=== PATIENT | female | born 1930 | race Caucasian/White ===

== ENCOUNTER 2017-04-06 17:40 | Observation (INO) | payer OTHER, MEDICARE ==
[~2017-04-06] VITALS: Ht 152.4 cm; Wt 66.2 kg
[~2017-04-06 17:40] MED LIST: ALLOPURINOL100 M1 PO; AMLODIPINE BESY10 M1 PO; ASPIRIN EC81 M1 PO; ATORVASTATIN CA20 M1 PO; CALTRATE 600 +1 EACH PO; CLONIDINE HCL0.1 MG PO; CLOPIDOGREL75 M1 PO; DICLOFENAC POTA50 M1 PO; I-CAPS WITH LU1 EACH PO; INDOMETHACIN25 M1 PO; LEVAQUIN500 M1 PO; LOSARTAN-HCTZ1 EAC2 PO; METOPROLOL SUC100 M2 PO; NITROGLYCERIN1 EACH TOP; OMEPRAZOLE40 M1 PO; PREDNISONE10 M2 PO; TESSALON PERLE100 M1 PO
--- NOTE | 2017-04-06 17:46 | NUR ---
PT BIBA FROM HOME C/O CHEST PAIN FOR HALF HOUR PRIOR TO CALLING EMS. PER REPORT, PT HAD PREVIOUSLY HAD SAME PAIN AND XRAY TO RULE OUT SKELETAL CAUSE. CHRONICALLY HYPERTENSIVE. OTHER VS WNL. O2 SAT 98% ON RA. PT WITH NO APPARENT DISTRESS, GOOD COLOR, NO INCREASED WOB.
--- NOTE | 2017-04-06 18:00 | NUR ---
RECIEVED TO ROOM 9. ASSISTED IN GETTING UNDRESSED.
--- NOTE | 2017-04-06 18:15 | NUR ---
EKG COPLETED. MST JENNIFER IN ROOM TO DRAW LABS. ON MONITOR IN [place].
--- NOTE | 2017-04-06 18:19 | NUR ---
LABS DRAWN AND SENT BY THIS [facility]. MARILYN,RIGO,LAV.
[2017-04-06 18:31] LABS: ABSOLUTE BASOPHIL COUNT 0 /CUMM (0.0-0.2); ABSOLUTE EOSINOPHIL COUNT 0.1 /CUMM (0.0-0.7); ABSOLUTE GRANULOCYTE CT 3.9 /CUMM (1.4-6.5); ABSOLUTE LYMPH COUNT 1.7 /CUMM (1.2-3.4); ABSOLUTE MONOCYTE COUNT 0.5 /CUMM (0.10-0.60); BASOPHIL % 0.8 % (0.0-2.0); EOSINOPHIL % 2.4 % (0-5); GRANULOCYTE % 61.9 % (42.2-75.2); MEAN CORPUSCULAR HGB 20.7 PG (27.0-31.0); MEAN CORPUSCULAR VOLUME 66.6 FL (81.0-99.0); MEAN PLATELET VOLUME 10.6 FL (7.4-10.4); PLATELET COUNT 178 /CUMM (130-400); RBC DISTRIBUTION WIDTH 17.6 % (11.5-14.5); WHITE BLOOD CELL COUNT 6.3 /CUMM (4.8-10.8)
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
--- NOTE | 2017-04-06 19:01 | RADIOLOGY REPORT ---
EXAMINATION: XR PORTABLE CHEST CLINICAL INFORMATION: Chest pain, pneumonia. COMPARISON: 05/11/2016. TECHNIQUE: Portable frontal view of the chest was obtained. FINDINGS: The cardiomediastinal silhouette is stable appearing. Lung volumes are diminished. The lungs and pleural spaces appear clear without evidence of congestion, consolidation, or significant appearing effusion or atelectasis. There is no evidence of pneumothorax or pulmonary edema. Included osseous structures appear largely unremarkable. IMPRESSION: No acute intrathoracic process.
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
[2017-04-06] MEDS ORDERED: LANSOPRAZOLE30 M2 PO (19:21)
[2017-04-06] MEDS ORDERED: AMLODIPINE BESYL5 M1 PO (19:22)
[2017-04-06] MEDS ORDERED: COLCHICINE0.6 M2 PO (19:23)
--- NOTE | 2017-04-06 19:34 | NUR ---
SEEN BY PADMINI CHOUDHURY. CONTINUES TO HAVE RIGHT CHEST PAIN
--- NOTE | 2017-04-06 19:50 | NUR ---
SANDHYA PA IN TO DISCUSS PLAN FOR IVF HYDRATION, CTA SCAN DUE TO ELEVATED D DIMER. PT INFORMED SHE NEEDS A A/C IV FOR CTA. PT TO GET UP AND PROVIDE URINE SPECIMEN PRIOR TO GETTING NEW IV STARTED
--- NOTE | 2017-04-06 20:15 | NUR ---
URINE TRIO SENT TO LAB. IV PLACED IN AC FOR CTA SCAN. IVF BOLUS STARTED
--- NOTE | 2017-04-06 20:46 | NUR ---
PT IN CT SCAN
--- NOTE | 2017-04-06 21:22 | NUR ---
PT UP TO RESTROOM TO VOID
--- NOTE | 2017-04-06 21:25 | CT SCAN REPORT ---
EXAMINATION: 1. CT ANGIOGRAM CHEST, for pulmonary embolism 2. CTA neck with IV contrast CLINICAL INFORMATION: Chest pain radiating to the neck. Shortness of breath. COMPARISON: Chest x-ray 04/06/2017 TECHNIQUE: A noncontrast localizer was performed, followed by the administration of 95 mL Optiray [address] of the neck and chest was then performed. Coronal and sagittal reformatted and 3-D technique MIP images of the chest were completed at the CT scanner and reviewed on the PACS workstation. DLP: 1017.51 mGy-cm. FINDINGS: 1. CT PE exam chest: VASCULAR: The main pulmonary artery, secondary and tertiary branches of the pulmonary artery are normally opacified with no evidence of pulmonary embolism. Atherosclerotic vascular wall calcifications of aorta and origin of great vessels. No aneurysm or dissection of the aorta. MEDIASTINUM: No mediastinal mass. No significant lymphadenopathy. There is no pericardial effusion. LUNGS: No acute infiltrate. Central bronchial airways are open. Linear parenchymal scarring at lung bases bilateral. FLUID: There is no pericardial effusion. There is no pleural effusion. AXILLA: No significant lymphadenopathy. UPPER ABDOMEN: Adrenal glands normal. Visualized portions of liver and spleen unremarkable. SKELETAL: Multilevel degenerative change of the spine with bridging osteophytes and facet joint arthrosis. 2. CT of neck with contrast: VASCULAR: Normal enhancement of the vasculature of the neck. No aortic dissection. No dissection of the carotid vessels. OTHER: No abnormal enhancing lesion. No bulky lymphadenopathy. Fat planes of the neck are normal with no inflammatory change. The nasopharynx or oropharynx and hypopharynx are unremarkable. No prevertebral soft tissue swelling. Right and left lobes of thyroid gland shows small hypodense nonenhancing nodules but no enlargement of the thyroid. The submandibular glands and the parotid glands are normal. Orbits unremarkable. Paranasal sinuses and mastoid air cells are normally aerated. The visualized portions of the intracranial structures are unremarkable. There is degenerative spondylosis of the spine with disc height narrowing and endplate spurring and facet joint arthrosis at multiple levels. IMPRESSION: 1. CT OF CHEST: No acute change of the chest. No evidence of aortic or carotid dissection. No evidence of pulmonary embolism. 2. CT OF NECK: No inflammation or mass. No abnormal enhancing lesion.
--- NOTE | 2017-04-06 22:12 | NUR ---
PT GIVEN BOX LUNCH TO EAT
--- NOTE | 2017-04-06 22:45 | NUR ---
SECOND TROP AND EKG DONE AT THIS TIME.
--- NOTE | 2017-04-06 23:11 | NUR ---
MEDICATED WITH EVENING DOSE OF CLONIDINE DUE TO ELEVATED BLOOD PRESSURE. NTG PATCH REMOVED FROM PT--PER PT REQUEST-FOR NITRATE FREE PERIOD AT NIGHT
--- NOTE | 2017-04-06 23:48 | NUR ---
Informed waiting has been performed.
--- NOTE | 2017-04-07 00:07 | NUR ---
PT AWARE THAT WE ARE AWAITING BED ASSIGNMENT.
--- NOTE | 2017-04-07 00:14 | NUR ---
Emergency Dept UC Admit Note: To be admitted to [facility] by DR. ALMONTE with CHEST PAIN R/O ACS as the diagnosis, to TELE 1NO [id number] A 23HR OBS location. Nursing Pupil Personnel Worker and admitting notified 04/07/17 at [id number]
--- NOTE | 2017-04-07 00:25 | NUR ---
REPORT GIVEN TO RAGHAV ON TELEMETRY. BED IS READY.
--- NOTE | 2017-04-07 01:07 | History & Physical ---
MARISABEL NOVA 04/07/17 0107: General Information and HPI MD Statement: I have seen and personally examined ALLA BLOCK and documented this H&P. The patient is a 86 year old F who presented with a patient stated chief complaint of chest discomfort Source of Information: patient, old records Exam Limitations: no limitations History of Present Illness: Ms Block is an 86-year-old woman who was known to be in her usual state of health until a few months ago. She has a past medical history of hypertension, angina (stress test-normal 1 yr ago), gout, hyperlipidemia. She came to [facility] with a chief concern of chest pressure 1 day. As per the patient, she has chest pressure, on and off for a few months, episodes last 10-15' , with no radiation, severity 4-5/10, with resolution upon rest. No palpitations, shortness of breath, loss of consciousness, abdominal discomfort was noted. This a.m., the patient had similar complaints, chest pressure, located in the center of the chest, 5/10, radiation to both sides of the neck and head, lasted for an hour. Reported to have elevated blood pressure , when the EMS arrived. Did not have any dysuria, neurological weakness, fever, cough, shortness of breath. Independent at baseline, lives with family, and has been following with her primary care physician on a regular basis. Reports compliance with her medications. Nonsmoker, nonalcoholic. Allergies/Medications Allergies: Coded Allergies: No Known Allergies (01/13/16) Observation Initial Note - I have personally examined ALLA BLOCK on 04/07/17 at 0309. The disposition of ALLA BLOCK is uncertain at this time and before a determination can be made, she requires a period of observation for the following reasons #1 rule out ACS #2 serial electrocardiograms and echocardiograms. Past History Travel History Traveled to [place] past 21 day No Medical History Neurological: NONE EENT: NONE Cardiovascular: angina, hypertension, hyperlipidemia Respiratory: pneumonia Gastrointestinal: GERD Hepatic: NONE Renal: GOUT Musculoskeletal: NONE Psychiatric: NONE Endocrine: NONE Blood Disorders: NONE Cancer(s): NONE SU[employer]/Reproductive: NONE Surgical History Surgical History: non-contributory Past Family/Social History Family History Relations & Conditions if any Relation not specified for: *No pertinent family history Functional Ability ADLs Independent: dressing, eating, toileting, bathing. Ambulation: independent IADLs Independent: housework, food prep, telephone. Unknown: shopping, finances, transportation, medication admin. Review of Systems Review of Systems Constitutional: Reports: see HPI. Denies: chills, fever. EENTM: Denies: blurred vision. Cardiovascular: Reports: chest pain. Denies: orthopena, palpitations. Respiratory: Denies: cough, short of breath. GI: Denies: constipation, melena, nausea, vomiting. Genitourinary: Denies: discharge. Musculoskeletal: Denies: back pain. Skin: Denies: change in skin color. Neurological/Psychological: Denies: anxiety, headache. Hematologic/Endocrine: Denies: bruising. Exam & Diagnostic Data Last 24 Hrs of Vital Signs/I&O Vital Signs Date Time Temp Pulse Resp B/P B/P Pulse O2 O2 Flow FiO2 Mean Ox Delivery Rate 04/07 0213 97.6 49 20 150/74 97 Room Air 04/07 0007 96.8 57 18 164/72 97 Room Air 04/06 2310 96.5 59 18 180/76 97 Room Air 04/06 2257 52 188/70 04/06 2057 96.8 52 18 188/70 98 Room Air 04/06 1855 Room Air 04/06 1742 97.8 55 18 188/79 97 Room Air Intake & Output 04/07 0800 04/07 0000 04/06 1600 Intake Total 1000 Output Total Balance 1000 Intake, IV 1000 Patient 146 lb Weight Physical Exam General Appearance Alert, Oriented X3, Cooperative, No Acute Distress Skin No Rashes, No Breakdown Skin Temp/Moisture Exam: Warm/Dry Sepsis Skin Exam (color): Normal for Ethnicity HEENT Atraumatic, PERRLA, EOMI Neck Supple, No JVD, No thryomegaly, +2 Carotid Pulse wo Bruit Lymphatic Cervical nl Cardiovascular Regular Rate, Normal S1, Normal S2, No Murmurs Lungs Clear to Auscultation, Normal Air Movement Abdomen Normal Bowel Sounds, Soft, No Tenderness, No Hepatospenomegaly Neurological Normal Speech, Strength at 5/5 X4 Ext, Normal Tone, Sensation Intact, Cranial Nerves 3-12 NL Extremities No Clubbing, No Cyanosis, Normal Pulses, No Tenderness/Swelling, swelling on left pcp joint on third finger, from gout Vascular Pulses Symmetrical Sepsis Peripheral Pulse Location: Dorsalis Pedis Body Front and Back (Adult) 1) swelling of finger joints Diagnostic Data EKG Results Normal sinus rhythm, normal axis, no ST-T wave changes. CXR Results No acute intrathoracic process. Other Results 1. CT OF CHEST: No acute change of the chest. No evidence of aortic or carotid dissection. No evidence of pulmonary embolism. 2. CT OF NECK: No inflammation or mass. No abnormal enhancing lesion. Assessment/Plan Assessment: She is rollerblading with a past history of angina, hypertension is being evaluated for worsening chest pressure 1 day. At the time of admission, vitals-temperature 97.8, pulse rate 55, respiration 18 , blood pressure 188/79 (improved to 164/72), 98% on room air. Lab findings indicated no leukocytosis, H&H low-9.9 (baseline unknown), normal platelets, normal electrolytes, abnormal renal function (serum creatinine 1.5), cardiac enzymes-negative, hepatic panel-within normal limits. ProBNP 340. Radiological findings-CT chest was unremarkable for any dissection. No pulmonary embolism. Differential diagnosis: #1 rule out ACS #2 aortic dissection #3 musculoskeletal #4 pneumonia Below is the problem list and plan: #1 chest pressure-could be transient vasospasm of coronary arteries, and/or age related. Serial electrocardiograms and echocardiograms to be done. Telemetry monitoring for the next [address] in observation[address] Review the results from stress test, and ascertain if any further testing is required. Vitals. CTA negative for aortic dissection. Musculoskeletal cause is in the differential. Patient on aspirin and Plavix at this time as part of her home medications-which needs to be addressed, the reason for dual antiplatelet therapy in this case. #2 hypertension-per definition, she has resistant hypertension. Continue antihypertensives at this time, but introduce them slowly in order to avoid sudden drop in blood pressure. #3 DVT prophylaxis-pharmacological. As Ranked By This Provider Problem List: 1. Chest pain Qualifiers Chest pain type: unspecified Qualified Code: R07.9 - Chest pain, unspecified 2. Gout attack Core Measures/Miscellaneous Acute Coronary Syndrome ACS Diagnosis: No Cerebrovascular Accident CVA/TIA Diagnosis: No Congestive Heart Failure CHF Diagnosis: No VTE (View Protocol) VTE Risk Factors: Acute medical illness No [facility] VTE prophylaxis d/t: No contraindications No VTE Pharm Prophylaxis d/t: No contraindications VTE Diagnosis: No VTE Type: NONE VTE Confirmed by (Test): NONE Sepsis (View Protocol) Severe Sepsis Present: No Septic Shock Septic Shock Present: No Miscellaneous Documentation Attending Case Discussed With: SUZY MUNOZ,YOMAIRA Butterfield Primary Care Physician: ZEN TADEO MD, I. Patient sees these Specialists unkninw Level of Patient Care: Telemetry DEEPALI SINGH 04/07/17 0203: Resident Review Statement Resident Statement: discussed with sports internship, agreed with sports internship, discussed with family Other Findings: Patient is a healthy 86 year old female with PMH of HTN, hyperglycemia, possibly underlying renal disease (follows chief mechanical engineer but unsure of the problem), gout, arthritis, came with a chief complain of tightness around her chest. Patient states that the chest tightness has been going on since a couple of weeks, it spreads to her neck, head and back. Patient states that it is 7/10 in intensity. She had no prior workup done but visited her PCP on wednesday 04/04 and had a CXR done. Patient denies any light headedness, shortness of breath, palpitations, abdominal discomfort, burning micturation etc. She states that she lives with her brother in law at home after the of her sister and . Patient has never followed a community health worker, and reports of a normal stress test from last year. She follows PCP in [facility], Dr. Tadeo. Labs and Vitals as above. Imaging results 1. CT OF CHEST: No acute change of the chest. No evidence of aortic or carotid dissection. No evidence of pulmonary embolism. 2. CT OF NECK: No inflammation or mass. No abnormal enhancing lesion. CXR No acute intrathoracic process. Plan Will admit to telemetry floor, and monitor closely Patients pain could be due to anxiety, however will rule her out for ACS Two sets of troponins have been negative. Will discuss the case with Dr. Fam in am. Will obtain echocardiogram to evaluate Creatinine 1.5, could be her baseline value, will obtain old records to verify. Will avoid IV fluids for now as patient has hx of b/l lower extremety swelling. Will resume her home meds for hypertension, patient was given Clonidine in ER. She takes 4 antihypertensive medications, Amlodipine, Clonidine, HCTZ/Losartan. Patient is on Aspirin and Plavex, she is unsure why she is on plavix, please obtain her records from PCP office to confirm. Will hold allpurinol, and losartan/HCTZ and monitor creatinine. Will obtain Lipid panel and HbA1c DVT ppx SC heprin Patient is full code. SUZY MUNOZ,YOMAIRA Butterfield 04/07/17 1513: General Information and HPI Allergies/Medications Home Med list Allopurinol 100 MG TABLET 2 TAB PO DAILY GOUT (Reported) Amlodipine Besylate 5 MG TABLET 1 TAB PO DAILY BP (Reported) Antiox#10/Om3/Dha/Epa/Lut/Zeax (I-Caps With Lutein-[place] 3 Sfg) 1 EACH CAPSULE 1 CAP PO DAILY SUPPLEMENT (Reported) Aspirin (Ecotrin*) 81 MG TABLET.DR 1 TAB PO DAILY HEART/BLOOD (Reported) Atorvastatin Calcium 20 MG TABLET 1 TAB PO DAILY CHOLESTEROL (Reported) Calcium Carbonate/Vitamin D3 (Caltrate 600 + D Tablet) 1 EACH TABLET 1 TAB PO DAILY SUPPLEMENT (Reported) Clonidine HCl 0.1 MG TABLET 1 TAB PO BID BP (Reported) Clopidogrel Bisulfate (Clopidogrel) 75 MG TABLET 1 TAB PO DAILY BLOOD THINNER (Reported) Lansoprazole 30 MG CAPSULE.DR 1 CAP PO DAILY GI (Reported) Losartan/Hydrochlorothiazide (Losartan-Hctz 100-25 MG Tab) 1 EACH TABLET 0.5 TAB PO DAILY HTN Metoprolol Succinate 100 MG TAB.ER.24H 1 TAB PO DAILY BP (Reported) Nitroglycerin (Nitroglycerin Patch) 1 EACH PATCH.TD24 1 PATCH TOP DAILY ANGINA (Reported) Attending MD Review Statement Attending Statement Attending MD Statement: examined this patient, discuss w/resident/PA/JANITORIAL ASSISTANT, agreed w/resident/PA/JANITORIAL ASSISTANT, discussed with family, reviewed EMR data (avail), discussed with nursing, discussed with case mgmt, reviewed images, amended to note Attending Assessment/Plan: Mrs. Alla Block is an 86-year-old female with a history of obesity, gout, arthritis (? gouty), hypertension, dyslipidemia, diabetes mellitus, chronic kidney disease, anemia, and chest pain syndrome with "negative"stress test approximately one year ago who presented from home after experiencing an episode of moderate, chest "tightness" while making dinner last evening that lasted approximately 20 minutes before spontaneously subsiding. She denies any associated symptoms with the discomfort, but did feel as though it radiated into her head. Her [id number] contacted 911 and it was recommended that she take 4 aspirin (81 mg) which he had her take. She was told in the past that similar episodes were the result of "anxiety". She denies any history of coronary, valvular, dysrhythmic/conduction disease or cardiomyopathy. On physical examination she is well-developed, overweight elderly female in no acute distress. Vital signs: See above. HEENT: Normocephalic, atraumatic, EOMI, slightly dry mucous membranes. Neck: No JVD, no bruits. Lungs: Clear to auscultation bilaterally. Heart: S1, S2 with grade 1/6 systolic murmur. No gallop or rub appreciated. PMI fifth ICS at MCL. Abdomen: Soft, nontender, positive bowel sounds. Extremities: No edema. Studies: ECG (04/07/2017): sinus bradycardia, low frontal lead voltage, and prominent anterior forces. No significant change when compared to previous tracing performed on 04/06/2017. CT chest/neck (04/06/2017): 1. CT OF CHEST: No acute change of the chest. No evidence of aortic or carotid dissection. No evidence of pulmonary embolism. 2. CT OF NECK: No inflammation or mass. No abnormal enhancing lesion. Troponins: < 0.013. Impression: Elderly female with a risk equivalent and multiple risk factors for coronary artery disease who presented following an episode of chest discomfort, similar to other past, that resolved on its own after approximately 20 minutes without any electrocardiographic changes and negative cardiac enzymes. She is also very anxious to discharge so that she can follow-up with her primary care physician in [place]. Discussed the pros and cons of discharging her before stress testing can be performed and she is aware of the potential risk of this course of action and accepts it.
[2017-04-07 02:13] VITALS: BP 150/74
[2017-04-07 04:52] LABS: ABSOLUTE BASOPHIL COUNT 0.1 /CUMM (0.0-0.2); ABSOLUTE EOSINOPHIL COUNT 0.1 /CUMM (0.0-0.7); ABSOLUTE GRANULOCYTE CT 3.7 /CUMM (1.4-6.5); ABSOLUTE LYMPH COUNT 1.9 /CUMM (1.2-3.4); ABSOLUTE MONOCYTE COUNT 0.4 /CUMM (0.10-0.60); BASOPHIL % 0.9 % (0.0-2.0); EOSINOPHIL % 1.7 % (0-5); GRANULOCYTE % 59.7 % (42.2-75.2); HEMATOCRIT 31.9 % (37-47); MEAN CORPUSCULAR HGB 20.4 PG (27.0-31.0); MEAN CORPUSCULAR HGB CONC 30.6 G/DL (33.0-37.0); MEAN CORPUSCULAR VOLUME 66.7 FL (81.0-99.0); MEAN PLATELET VOLUME 9.9 FL (7.4-10.4); PLATELET COUNT 179 /CUMM (130-400); RBC DISTRIBUTION WIDTH 17.7 % (11.5-14.5); RED BLOOD CELL CT 4.78 /CUMM (4.20-5.40); WHITE BLOOD CELL COUNT 6.2 /CUMM (4.8-10.8)
[2017-04-07 07:17] VITALS: BP 164/88
--- NOTE | 2017-04-07 11:31 | Patient Discharge Instructions ---
Discharge Instructions General Discharge Information You were seen/treated for: chest pain/ r/o ACS Hyperlipidemia hypertension Special Instructions: -Please schedule a follow up with your PCP in one week for stress test . -Please take the medications as directed . -Dose of losartan/HCTZ has been decreased to 50/12.5 mg dailly. -Return to ER if symptoms get worse after the discharge. repeat thyroid function test in one week by your primary care physician. Diet Recommended Diet: Heart Healthy Activity Activity Self Limited: Yes Acute Coronary Syndrome Inclusion Criteria At DC or during hospital stay patient has or had the following: ACS DIAGNOSIS No Discharge Core Measures Meds if any: Prescribed or Continued at Discharge Meds if any: NOT Prescribed or Continued at Discharge Congestive Heart Failure Inclusion Criteria At DC or during hospital stay patient has or had the following: CHF DIAGNOSIS No Discharge Core Measures Meds if any: Prescribed or Continued at Discharge Meds if any: NOT Prescribed or Continued at Discharge Cerebrovascular accident Inclusion Criteria At DC or during hospital stay patient has or had the following: CVA/TIA Diagnosis No Discharge Core Measures Meds if any: Prescribed or Continued at Discharge Meds if any: NOT Prescribed or Continued at Discharge Venous thromboembolism Inclusion Criteria VTE Diagnosis No VTE Type NONE VTE Confirmed by (Test) NONE Discharge Core Measures - Per Current guidelines, there needs to be overlap - treatment for the first 5 days of Warfarin therapy. - If discharged on Warfarin prior to 5 days of - overlap therapy, the patient will need to be - assessed for post discharge needs including - *Post discharge parental anticoagulation - *Warfarin and/or parental anticoagulation education - *Follow up date to check INR post discharge At least 5 days overlap therapy as Inpatient No Meds if any: Prescribed or Continued at Discharge Note: Overlap Therapy is Warfarin and Anticoagulant Meds if any: NOT Prescribed or Continued at Discharge
--- NOTE | 2017-04-07 12:46 | ECHOCARDIOGRAM REPORT ---
KALEB MILLER Age: 86 : 1930 Gender: F Exam Date: 04/07/2017 10:32 Exam Location: 1 [address] Ht (in): 60 Wt (lb): 146 BSA: 1.70 BP: 164 / 88 Ordering Physician: DEEPALI SINGH MD Referring Physician: DEEPALI SINGH MD Technologist: Grabiel Rhodes [facility] Room Number: 175-1 Indications: Chest Pain Rhythm: Sinus Technical Quality: Fair FINDINGS Left Ventricle Normal global left ventricular size, wall thickness, systolic function with no obvious regional wall motion abnormalities. Left ventricular ejection fraction is estimated at >65 %. Normal left ventricular diastolic filling pattern for age. Right Ventricle The right ventricle is normal in size and function. Right Atrium The right atrium is normal in size. Left Atrium The left atrium is upper normal liimits in size. The interatrial septum is intact. Mitral Valve The mitral valve is normal in structure and function. There is trace mitral regurgitation. Aortic Valve Focal thickening of the aortic valve cusps. No aortic stenosis. Trace aortic regurgitation. Tricuspid Valve The tricuspid valve is normal in structure and function. There is mild tricuspid regurgitation. Right ventricular systolic pressure estimated to be elevated at 60-65 mmHg. Moderate to severe pulmonary hypertension. Pulmonic Valve Structurally normal pulmonic valve. There is no pulmonic regurgitation. Pericardium Normal pericardium without effusion. No pleural effusion. Great Vessels Normal aortic root dimension. The aortic arch and great vessels are well seen and are normal. CONCLUSIONS Normal global left ventricular size, wall thickness, systolic function with no obvious regional wall motion abnormalities. The left atrium is upper normal limits in size. The mitral valve is normal in structure and function. Focal thickening of the aortic valve cusps. No aortic stenosis. Trace aortic regurgitation. There is mild tricuspid regurgitation. Right ventricular systolic pressure estimated to be elevated at 60- 65 mmHg. Moderate to severe pulmonary hypertension. Jeffery Wen M.D. (Electronically Signed) Final Date: 07 April 2017 12:45 MEASUREMENTS (Male / Female) Normal Values 2D ECHO LV Diastolic Diameter PLAX 4.5 cm 4.2 - 5.9 / 3.9 - 5.3 cm LV Systolic Diameter PLAX 2.8 cm 2.1 - 4.0 cm LV Fractional Shortening PLAX 37.8 % 25 - 46 % LV Ejection Fraction 2D Teich 68.0 % IVS Diastolic Thickness 0.9 cm LVPW Diastolic Thickness 1.0 cm LV Relative Wall Thickness 0.4 RV Internal Dim ED PLAX 3.3 cm 1.9 - 3.8 cm LVOT Diameter 1.7 cm Aortic Root Diameter 2.0 cm LA Systolic Diameter LX 3.7 cm 3.0 - 4.0 / 2.7 - 3.8 cm LA Volume 39.0 cm 18 - 58 / 22 - 52 cm Ascending Aorta Diameter 2.8 cm DOPPLER AV Peak Velocity 176.0 cm/s AV Peak Gradient 12.4 mmHg AV Mean Velocity 115.0 cm/s AV Mean Gradient 6.0 mmHg AV Velocity Time Integral 45.0 cm LVOT Peak Velocity 87.2 cm/s LVOT Peak Gradient 3.0 mmHg LVOT Mean Velocity 68.5 cm/s LVOT Mean Gradient 2.0 mmHg LVOT Velocity Time Integral 27.2 cm LVOT Stroke Volume 61.7 cm AV Area Cont Eq vti 1.4 cm AV Area Cont Eq pk 1.1 cm MV Peak Velocity 105.0 cm/s MV Peak Gradient 4.4 mmHg MV Mean Velocity 55.3 cm/s MV Mean Gradient 1.0 mmHg Mitral E Point Velocity 97.2 cm/s Mitral A Point Velocity 67.1 cm/s Mitral E to A Ratio 1.4 MV PHT Velocity 109.0 cm/s MV Deceleration Hendry 717.0 cm/s MV Pressure Half Time 45.6 ms MV Area PHT 4.8 cm MV Deceleration Time 173.0 ms TR Peak Velocity 373.0 cm/s TR Peak Gradient 55.7 mmHg Right Atrial Pressure 5.0 mmHg Pulmonary Artery Systolic Pressu 60.7 mmHg Right Ventricular Systolic Press 60.7 mmHg PV Peak Velocity 91.0 cm/s PV Peak Gradient 3.3 mmHg PV Mean Velocity 72.8 cm/s PV Mean Gradient 2.0 mmHg PV Velocity Time Integral 28.1 cm LV E' Lateral Velocity 10.2 cm/s Mitral E to LV E' Lateral Ratio 9.5 LV E' Septal Velocity 6.7 cm/s Mitral E to LV E' Septal Ratio 14.4
[2017-04-07 13:31] VITALS: BP 140/60
[2017-04-07 14:35] VITALS: BP 150/62
[2017-04-07] MEDS ORDERED: LOSARTAN-HCTZ1 EAC2 PO (15:18)
--- NOTE | 2017-04-07 16:12 | Event Note ---
Event Note Event Note: Patient was very anxious to be discharged, discussed the pros and cons of discharging her before stress testing could be performed, she is aware of the potential risk of sigining AMA but still is accepting the risk. She wants to follow up with her PCP in [place].
== END 2017-04-07 16:55 | disposition left against medical advice (07) ==
LOC: ERH 17:40 → ERHI 23:19 → 1NO 23:19 → ENRESERV 04-07 00:10 → 1NO 04-07 00:33 → ENPENDDIS 04-07 16:16 → 1NO 04-07 16:55
PROVIDERS: Internal Medicine; Physician Assistant Medical; ADMIT Internal Medicine Interventional Cardiology
DX: R07.89 Other chest pain (principal); I20.9 Angina pectoris, unspecified; I12.9 Hypertensive chronic kidney disease with stage 1 through stage 4 chronic kidney disease, or unspecified chronic kidney disease; N18.9 Chronic kidney disease, unspecified; E11.22 Type 2 diabetes mellitus with diabetic chronic kidney disease; M10.9 Gout, unspecified; M19.90 Unspecified osteoarthritis, unspecified site; E66.9 Obesity, unspecified; E78.5 Hyperlipidemia, unspecified; D64.9 Anemia, unspecified; K21.9 Gastro-esophageal reflux disease without esophagitis
CPT/HCPCS: 6020; 36415; 81001; 82436; 93005; 93010; 93306; 96360; 96372; G0378; J1644; J7508